=== PATIENT | female | born 1945 | race Caucasian/White ===

== ENCOUNTER 2016-08-06 18:04 | Emergency (ER) | payer OTHER, MEDICARE ==
[~2016-08-06] VITALS: Ht 157.5 cm; Wt 59.4 kg
[2016-08-06 18:10] VITALS: BP 180/95
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
[2016-08-06] MEDS ORDERED: PERCOCET 5-3251 EACH PO (18:44)
== END 2016-08-06 19:04 ==
LOC: ERH 18:04
DX: T23.261A Burn of second degree of back of right hand, initial encounter (principal); X10.2XXA Contact with fats and cooking oils, initial encounter; Y93.G3 Activity, cooking and baking; Y92.9 Unspecified place or not applicable
CPT/HCPCS: 90471; 90714